=== PATIENT | male | born 1945 | race Caucasian/White ===

== ENCOUNTER 2020-09-09 12:33 | Outpatient (REF) | payer MEDICARE, OTHER, SELFPAY ==
[2020-09-09 13:06] LABS: MANUAL DIFF FLAG NO
[2020-09-09 13:10] LABS: Basophils Percent Auto 0.8 % (0-2); Eosinophils Absolute Auto 0.1 X10*3/uL (0.0-0.4); Eosinophils Percent Auto 2.3 % (0-4); Hematocrit 42.4 % (42-52); Hemoglobin 13.5 g/dl (14.0-18.0); Imm Gran Abs Auto 0.01 X10*3/uL (0.00-0.03); Imm Gran Pct Auto 0.2 % (0.0-0.4); Lymphocytes Absolute Auto 2.2 X10*3/uL (1.2-4.9); Lymphocytes Percent Auto 41.6 % (20-40); Mean Corpuscular HGB Conc 31.8 g/dl (31.0-36.0); Mean Corpuscular Hemoglobin 30.2 pg (27.0-33.0); Mean Corpuscular Volume 94.9 fL (80-98); Monocytes Absolute Auto 0.5 X10*3/uL (0.1-1.2); Monocytes Percent Auto 10.1 % (2-11); Neutrophils Absolute Auto 2.4 X10*3/uL (2.0-8.3); Platelet Count 261 X10*3/uL (160-400); Red Blood Count 4.47 X10*6/uL (4.60-5.80); Red Cell Distribution Width 14.2 % (11.0-16.0); White Blood Count 5.2 X10*3/uL (4.8-10.8)
[2020-09-09 13:14] LABS: Glucose Urine UA NEG (NEG); Leukocyte Esterase Urine NEG (NEG); Nitrite Urine NEG (NEG); PH 5.5 (5.0-8.0); Specific Gravity - Urine >= 1.030 (1.005-1.025); Urine Blood NEG (NEG); Urine Ketones NEG (NEG); Urine Protein NEG (NEG-TRACE)
[2020-09-09 13:15] LABS: Appearance Urine CLEAR; Color Urine YELLOW
[2020-09-09 13:42] LABS: Alanine Aminotransferase 34 U/L (0-40); Albumin Level 3.9 g/dL (3.5-5.0); Alkaline Phosphatase 55 U/L (39-117); Anion Gap 11 (12-20); Aspartate Amino Transferase 33 U/L (5-37); Bilirubin Total 0.7 mg/dL (0.0-1.0); Blood Urea Nitrogen 16 mg/dL (9-16); Calcium 8.9 mg/dL (8.4-10.2); Carbon Dioxide 28 mmol/L (22-29); Chloride 102 mmol/L (96-108); Cholesterol 146 mg/dL; Estimated Glomerular Filt Rate > 60; Glucose Fasting 87 mg/dL (60-99); HDL Cholesterol 37 mg/dL; LDL Cholesterol Calculated 102 mg/dl; Potassium 4.1 mmol/l (3.3-5.1); Sodium 137 mmol/L (135-145); Triglycerides 39 mg/dL
[2020-09-09 13:54] LABS: Prostate Specific Antigen 3.77 ng/mL (<0.05-4.0)
== END 2020-09-09 12:34 | disposition home or self-care (01) ==
LOC: HO.LAB 12:33
PROVIDERS: PCP Internal Medicine; Visit Provider Internal Medicine
DX: D72.820 Lymphocytosis (symptomatic) (principal); R73.9 Hyperglycemia, unspecified; R94.5 Abnormal results of liver function studies; R97.20 Elevated prostate specific antigen [PSA]; E78.6 Lipoprotein deficiency
CPT/HCPCS: 36415; 80053; 80061; 81003; 84153; 85025

== ENCOUNTER 2021-01-10 21:48 | Emergency (ER) | payer MEDICARE, OTHER, SELFPAY ==
[2021-01-10 21:51] VITALS: BP 166/81; PULSE 64; RESP 18; TEMP 36.8; O2SAT 96; BMI 21.9
--- NOTE | 2021-01-10 22:42 | ED.ANIMALBIT ---
HPI - Animal Bite General Chief Complaint: Animal Bite Stated Complaint: Tick bite Time Seen by Provider: 01/10/21 22:38 Source: patient Mode of arrival: ambulatory History of Present Illness HPI narrative: 75-year-old male who was working out in the [employer] presents with retained tick parts in the right back area after he found a tick and his attempted to remove it. He is unclear whether or not the tick was engorged and does not know how long the tick had been there. Related Data Allergies Allergy/AdvReac Type Severity Reaction Status Date / Time No Known Allergies Allergy Verified 01/10/21 21:51 Review of Systems Review of Systems: Pertinent positives and negatives as stated in HPI 10 point review of systems is otherwise negative. PMFSH Past Medical History Source: nursing notes reviewed Medical History Patient denies medical problems Social History Social History Alcohol intake: never Smoked in Last 30 Days: No Use of substances other than those prescribed or required for medical reasons: No Any prior treatment program specific to substance use: No Advance Directives: No Advance Directives Information Provided: Yes Physical Exam Vital Signs: Vital Signs: Last Vital Signs Temp 98.3 F 01/10/21 21:51 Pulse 64 01/10/21 21:51 Resp 18 01/10/21 21:51 BP 166/81 H 01/10/21 21:51 Pulse Ox 96 01/10/21 21:51 Body Mass Index 21.9 VITAL SIGNS: Reviewed. GENERAL: Well developed, well nourished, in no acute distress. HEAD: Normocephalic/atraumatic, EYES: PERRLA, EOMI intact without pain, no nystagmus/pallor/icterus noted EARS: Ext canals without abnormality, TMs non-bulging and non-erythematous NOSE: Nares patent bilateral OROPHARYNX: no oral lesions noted, posterior pharynx clear and non-erythematous without noted tonsillar enlargement/erythema/exudates NECK: Supple, no adenopathy LUNGS: Normal breath sounds. No adventitious sounds or accessory muscle use. SpO2<> CARDIOVASCULAR: Regular rate and rhythm without noted murmurs, no JVD or lower extremity edema. ABDOMEN: Soft, non-tender, non-distended with bowel sounds. No rigidity. No guarding. No palpable masses or hernias noted BACK NEUROLOGIC: Alert and oriented x 4. Course Course Course Narrative: 75-year-old male with history and clinical presentation consistent with tick bite, 200 mg of doxycycline was provided for prevention and removed remaining tick parts successfully by direct visualization. Patient was otherwise discharged to home in stable condition. Procedures Foreign Body Removal Time Out Performed: no Site: right and other (Back) Description of foreign body: insect (Tick parts) Sedation/Analgesia: none and other (Lidocaine 2%, 1 male, subcutaneous) Technique: manual removal and removal with forceps Confirmed by:: direct visualization Complications: none Post-procedure exam: awake, alert Discharge Plan Discharge Clinical Impression: Retained tick parts of upper back excluding scapular region Tick bite Qualifiers: Encounter type: initial encounter Qualified Code(s): W57.XXXA - Bitten or stung by nonvenomous insect and other nonvenomous arthropods, initial encounter Patient Disposition: Home, Self-Care Instructions: Tick Bite (ED) Additional Instructions: Follow-up with your primary care provider in the next 2-3 days for re-evaluation. Do not hesitate to return to the emergency department for any acute worsening of symptoms. Referrals: Fahad Garner MD [Primary Care Provider] - 2 days (Re-evaluation after tick bite. 200 mg of doxycycline administered for prevention and had to remove tick parts without complication.)
[2021-01-10] MEDS: Lidocaine HCl 2 % MPF 5 ML VIAL INFILTRATI (23:01)
== END 2021-01-10 23:49 | disposition home or self-care (01) ==
PROVIDERS: Emergency Provider Student in an Organized Health Care Education/Training Program; PCP Internal Medicine
DX: S20.461A Insect bite (nonvenomous) of right back wall of thorax, initial encounter (principal); W57.XXXA Bitten or stung by nonvenomous insect and other nonvenomous arthropods, initial encounter; Y93.9 Activity, unspecified; Y92.017 Garden or yard in single-family (private) house as the place of occurrence of the external cause; Y99.9 Unspecified external cause status; Y93.89 Activity, other specified
CPT/HCPCS: 99283; 99284

== ENCOUNTER 2021-09-14 10:24 | Day surgery (SDC) | payer MEDICARE, OTHER, SELFPAY ==
[2021-09-14 11:07] VITALS: BP 153/81; PULSE 58; RESP 16; TEMP 36.3; O2SAT 99; BMI 21.9
--- NOTE | 2021-09-14 11:13 | HO.ANESPROP2 ---
HPI - Anesthesia Eval Consult details Narrative: 76yo male patient for colonoscopy PMFSH Active Problems Active Problems: No medical problems. Only takes vitamins Past Medical History Medical History Patient denies medical problems Family History Family history of problems with anesthesia: No Surgical History Surgical History Hx of appendectomy Hx of bilateral cataract extraction Hx of colonoscopy Hx of inguinal hernia repair Hx of prostate biopsy History of Problems with Anesthesia: No Social History Social History Alcohol intake: never Patient Tobacco Use Status: Never used Tobacco Use of substances other than those prescribed or required for medical reasons: No Are you DNR?: No Advance Directives: No Advance Directives Information Provided: No Meds Allergies Allergy/AdvReac Type Severity Reaction Status Date / Time No Known Allergies Allergy Verified 01/10/21 21:51 Active Medications: Current Medications Sodium Biphosphate/Sodium Phosphate (Sodium Phosphate,[place]-Dibasic 133 Ml Enema) 133 ml NE ONCE PRN PRN Reason: Poor Colonoscopy Prep Results Home Medications Medication Instructions Recorded Confirmed Last Taken Type Co Q-10 09/08/21 09/08/21 Unknown History multivitamin 1 tab PO DAILY 09/08/21 09/08/21 Unknown History Exam Exam Date and Time: September 14, 2021 1113 Height,Weight and Vital Signs: Height 6 ft 5 in Weight 83.915 kg Vital Signs Temp Pulse Resp BP Pulse Ox 09/14/21 11:07 97.4 F 58 16 153/81 H 99 Airway Mallampati Class: I TM Dist: >3cm Neck ROM: Full Loose/Missing/Broken Teeth: No Heart: RRR Lungs: CTAB Assessment and Plan Assessment Anesthesia Assessment: Anesthesia Plan Discussed and Chart Reviewed Final Anesthetic Review Family History of Problems with Anesthesia: No History of Problems with Anesthesia: No NPO: Yes ASA Class: I Final Preanesthetic Review: No Changes in Pt Med Stat, Meds/Allgs Chart Reviewed, Consent Obtained/Reviewed and Anes Risks/Benef Reviewed Patient Risk: Low Procedure Risk: Low Assessment/Block/Sedation in SS: Assess/Block/Sedation-SS Anesthetic Plan Anesthetic Plan: MAC: Disposition: Standard PACU
[2021-09-14] MEDS: Lactated Ringers 1,000 ML 100 ML IVCONT (11:32)
--- NOTE | 2021-09-14 12:59 | PM.OP ---
Brief Operative Note Date of Service: 09/14/21 Pre-op diagnosis: Screening, Abnormal MRI of rectum Post-op diagnosis: other (Colon polyps) Procedure: Colonoscopy to the cecum and TI with bx/removal of polyps Surgeon: Buck Chavarria Anesthesia: MAC Was an [employer] used for this Procedure?: No Estimated blood loss (mL): 2.0 Pathology: other (A. Cecal polyp B. Polyp at 60cm) Condition: stable Disposition: PACU
[2021-09-14 13:00] VITALS: BP 123/69; PULSE 57; RESP 16; TEMP 37.2; O2SAT 100
[2021-09-14 13:20] VITALS: BP 130/75; PULSE 53; RESP 16; TEMP 37.2; O2SAT 98
--- NOTE | 2021-09-14 14:54 | OP_ITS ---
SURGEON: Buck Chavarria MD INDICATIONS: The patient presents for evaluation of colorectal cancer screening, personal history of tubular adenoma of the colon, and abnormal MRI of rectum. Full consent has been obtained from him for this, including risks of bleeding and perforation. PREOPERATIVE DIAGNOSIS: POSTOPERATIVE DIAGNOSIS: PROCEDURE PERFORMED: Colonoscopy to cecum and terminal ileum with biopsy and removal of polyps. ESTIMATED BLOOD LOSS: COMPLICATIONS: ANESTHESIA: Monitored anesthesia care. ASSISTANTS: SPECIMENS: PREOPERATIVE DIAGNOSES: Colorectal cancer screening, personal history of tubular adenoma of the colon, and abnormal MRI of rectum. POSTOPERATIVE DIAGNOSES: Colorectal cancer screening, personal history of tubular adenoma of the colon, and abnormal MRI of rectum, small colon polyps, diverticulosis and internal hemorrhoids. DESCRIPTION OF PROCEDURE: The patient was placed in the left lateral decubitus position. The digital rectal exam revealed no abnormalities. The Olympus video pediatric colonoscope was entered into the rectum and advanced easily to the cecum. The entire cecum was well visualized and appeared normal other than an approximately 4 mm polyp, which was biopsied and completely removed with cold biopsy forceps. The appendiceal orifice and ileocecal valve appeared normal. The terminal ileum was cannulated and appeared normal. Scope was withdrawn back in the colon. The entire cecum otherwise appeared normal. The scope was slowly withdrawn assessing all mucosal surfaces carefully. Preparation was excellent. At 50 cm, was a flat approximately 3 or 4 mm polyp, which was biopsied and completely removed with cold biopsy forceps. I did not visualize any other polyps, colitis, nor angiodysplasia. There was a mild amount of sigmoid diverticulosis. In the rectum, the scope was retroflexed visualizing the distal rectum carefully, which appeared normal, other than internal hemorrhoids. The rectum was inspected carefully both the forward viewing and retroflexed positions and no abnormality was seen, as had been suggested on the MRI. The scope was withdrawn from the patient. He tolerated the procedure well and was returned to the recovery area in stable condition. IMPRESSION: 1. Small colon polyps, status post biopsy and removal. 2. Diverticulosis. 3. Internal hemorrhoids. 4. No rectal abnormalities as had been suggested on the MRI. PLAN: The results of the biopsies will be checked. At this point given his relatively minimal findings and his age, I do not think he will need any further screening colonoscopies. He will see me on a p.r.n. basis. This has been discussed with his . MD TRAVIS Amaro/YARY / [id number]
== END 2021-09-14 14:15 | disposition home or self-care (01) ==
PROVIDERS: PCP Internal Medicine; Visit Provider Internal Medicine
PROC: 0DJD8ZZ Inspection of Lower Intestinal Tract, Via Natural or Artificial Opening Endoscopic (ICD-10-PCS; CPT 45378; principal; 2021-09-14 11:30)
DX: Z12.11 Encounter for screening for malignant neoplasm of colon (principal); Z86.010 Personal history of colon polyps; R93.5 Abnormal findings on diagnostic imaging of other abdominal regions, including retroperitoneum; D12.0 Benign neoplasm of cecum; K63.5 Polyp of colon; K57.30 Diverticulosis of large intestine without perforation or abscess without bleeding; K64.8 Other hemorrhoids; E73.9 Lactose intolerance, unspecified
CPT/HCPCS: 45380; 88305

== ENCOUNTER 2021-09-29 10:07 | Outpatient (REF) | payer MEDICARE, OTHER, SELFPAY ==
[2021-09-29 10:10] LABS: MANUAL DIFF FLAG NO
[2021-09-29 10:27] LABS: Appearance Urine CLEAR; Color Urine YELLOW; Glucose Urine UA NEG (NEG); Leukocyte Esterase Urine NEG (NEG); Nitrite Urine NEG (NEG); Urine Blood NEG (NEG); Urine Ketones NEG (NEG); Urine Protein NEG (NEG-TRACE)
[2021-09-29 10:40] LABS: Basophils Percent Auto 0.3 % (0-2); Eosinophils Absolute Auto 0.2 X10*3/uL (0.0-0.4); Eosinophils Percent Auto 2.5 % (0-4); Hematocrit 42.1 % (42.0-52.0); Hemoglobin 13.3 g/dl (14.0-18.0); Imm Gran Abs Auto 0.02 X10*3/uL (0.00-0.03); Imm Gran Pct Auto 0.3 % (0.0-0.4); Lymphocytes Absolute Auto 3.4 X10*3/uL (1.2-4.9); Lymphocytes Percent Auto 46.4 % (20-40); Mean Corpuscular HGB Conc 31.6 g/dl (31.0-36.0); Mean Corpuscular Hemoglobin 29.8 pg (27.0-33.0); Mean Corpuscular Volume 94.2 fL (80.0-98.0); Mean Platelet Volume 10.5 fL (9.4-12.4); Monocytes Absolute Auto 0.6 X10*3/uL (0.1-1.2); Monocytes Percent Auto 8.3 % (2-11); Neutrophils Absolute Auto 3.1 x10*3/uL (2.0-8.3); Neutrophils Percent Auto 42.2 % (45-73); Platelet Count 284 X10*3/uL (160-400); Red Blood Count 4.47 X10*6/uL (4.60-5.80); Red Cell Distribution Width 14.2 % (11.0-16.0); White Blood Count 7.3 X10*3/uL (4.8-10.8)
[2021-09-29 12:20] LABS: Alanine Aminotransferase 31 U/L (0-40); Albumin Level 3.8 g/dL (3.5-5.0); Alkaline Phosphatase 57 U/L (39-117); Anion Gap 9 (12-20); Aspartate Amino Transferase 29 U/L (5-37); Bilirubin Total 0.4 mg/dL (0.0-1.0); Blood Urea Nitrogen 16 mg/dL (9-16); Calcium 9.2 mg/dL (8.4-10.2); Carbon Dioxide 31 mmol/L (22-29); Chloride 104 mmol/L (96-108); Cholesterol 151 mg/dL; Estimated Glomerular Filt Rate > 60; Glucose Fasting 91 mg/dL (60-99); HDL Cholesterol 30 mg/dL; LDL Cholesterol Calculated 108 mg/dl; PSA,Total (Free>4and<10) 5.19 ng/mL (0.00-4.00); Potassium 3.9 mmol/L (3.3-5.1); Sodium 140 mmol/L (135-145); Total Protein 6.8 g/dL (6.5-8.0); Triglycerides 66 mg/dL
[2021-09-29 12:46] LABS: Reflex LDLD? No
[2021-09-30 12:16] LABS: Free Prostate Spec Ag 0.9 ng/mL; Percent Free Prostate Spec Ag 15 % (calc) (>25)
== END 2021-09-29 10:08 | disposition home or self-care (01) ==
LOC: HO.LNP 10:07
PROVIDERS: Visit Provider Internal Medicine
DX: R73.9 Hyperglycemia, unspecified (principal); E78.6 Lipoprotein deficiency; D72.820 Lymphocytosis (symptomatic); R94.5 Abnormal results of liver function studies; R97.20 Elevated prostate specific antigen [PSA]; Z12.5 Encounter for screening for malignant neoplasm of prostate
CPT/HCPCS: 80053; 80061; 81003; 84153; 84154; 85025

== ENCOUNTER 2022-10-07 10:56 | Outpatient (REF) | payer MEDICARE, OTHER, SELFPAY ==
[2022-10-07 11:00] LABS: MANUAL DIFF FLAG NO
[2022-10-07 11:16] LABS: Basophils Absolute Auto 0.1 X10*3/uL (0.0-0.2); Basophils Percent Auto 0.8 % (0-2); Eosinophils Absolute Auto 0.3 X10*3/uL (0.0-0.4); Eosinophils Percent Auto 3.7 % (0-4); Hematocrit 41.1 % (42.0-52.0); Hemoglobin 13.1 g/dl (14.0-18.0); Imm Gran Abs Auto 0.02 X10*3/uL (0.00-0.03); Imm Gran Pct Auto 0.3 % (0.0-0.4); Lymphocytes Absolute Auto 3.2 X10*3/uL (1.2-4.9); Lymphocytes Percent Auto 43.6 % (20-40); Mean Corpuscular HGB Conc 31.9 g/dl (31.0-36.0); Mean Corpuscular Hemoglobin 30.2 pg (27.0-33.0); Mean Corpuscular Volume 94.7 fL (80.0-98.0); Mean Platelet Volume 10.2 fL (9.4-12.4); Monocytes Absolute Auto 0.7 X10*3/uL (0.1-1.2); Monocytes Percent Auto 9.6 % (2-11); Neutrophils Absolute Auto 3.1 x10*3/uL (2.0-8.3); Platelet Count 287 X10*3/uL (160-400); Red Blood Count 4.34 X10*6/uL (4.60-5.80); Red Cell Distribution Width 14.3 % (11.0-16.0); White Blood Count 7.3 X10*3/uL (4.8-10.8)
[2022-10-07 11:20] LABS: Appearance Urine Turbid; Color Urine Yellow; Glucose Urine UA Negative (Negative); Leukocyte Esterase Urine Negative (Negative); Nitrite Urine Negative (Negative); Specific Gravity - Urine >= 1.030 (1.005-1.025); Urine Blood Negative (Negative); Urine Ketones Negative (Negative); Urine Protein Trace mg/dL (Neg-Trace)
[2022-10-07 11:30] LABS: Bacteria Urine None Seen (None Seen); RBC Urine 0-2 /HPF (0-2); Squamous Epithelial Cell Urine 0-2 /HPF (0-2); WBC Urine 0-5 /HPF (0-5)
[2022-10-07 11:42] LABS: Alanine Aminotransferase 28 U/L (0-40); Albumin Level 3.7 g/dL (3.5-5.0); Alkaline Phosphatase 57 U/L (39-117); Anion Gap 11 (12-20); Aspartate Amino Transferase 28 U/L (5-37); Bilirubin Total 0.4 mg/dL (0.0-1.0); Blood Urea Nitrogen 18 mg/dL (9-16); Calcium 8.7 mg/dL (8.4-10.2); Carbon Dioxide 27 mmol/L (22-29); Chloride 107 mmol/L (96-108); Cholesterol 155 mg/dL; Estimated Glomerular Filt Rate > 60; Glucose Fasting 93 mg/dL (60-99); HDL Cholesterol 39 mg/dL; LDL Cholesterol Calculated 106 mg/dl; Sodium 141 mmol/L (135-145); Total Protein 6.4 g/dL (6.5-8.0); Triglycerides 54 mg/dL
[2022-10-08 11:24] LABS: Free Prostate Spec Ag 1.1 ng/mL; Percent Free Prostate Spec Ag 16 % (calc) (>25); Prostate Specific Ag Total 6.8 ng/mL (< OR = 4.0)
== END 2022-10-07 10:57 | disposition home or self-care (01) ==
LOC: HO.LNP 10:56
PROVIDERS: Visit Provider Internal Medicine
DX: E78.6 Lipoprotein deficiency (principal); D72.820 Lymphocytosis (symptomatic); R97.20 Elevated prostate specific antigen [PSA]; Z12.5 Encounter for screening for malignant neoplasm of prostate
CPT/HCPCS: 80053; 80061; 81001; 84153; 84154; 85025

== ENCOUNTER 2023-05-24 12:01 | Outpatient (REF) | payer MEDICARE, OTHER, SELFPAY ==
--- NOTE | ~2023-05-24 | US_ITS ---
EXAMINATION: US VENOUS ULTRASOUND WITH DOPPLER LOWER EXTREMITY, LEFT CLINICAL INFORMATION: Superficial phlebitis. COMPARISON: None available. TECHNIQUE: Ultrasound of the deep veins is performed from the hip to the calf with compression sonography and color and pulse Doppler assessment. Spectral analysis with color-flow imaging is performed. FINDINGS: There is normal venous compression and respiratory variation and augmented flow. The visualized common femoral vein, superficial femoral vein, profunda femoral vein, popliteal vein, and the trifurcation region shows no evidence of deep venous thrombosis. The right common femoral vein is patent. No left popliteal cyst. The subcutaneous soft tissues are unremarkable. US/US venous duplex LE LT IMPRESSION: No evidence for deep venous thrombosis in the visualized veins of the left lower extremity.
== END 2023-05-24 12:02 | disposition home or self-care (01) ==
LOC: HO.US 12:01
PROVIDERS: PCP Internal Medicine; Visit Provider Internal Medicine
DX: I80.02 Phlebitis and thrombophlebitis of superficial vessels of left lower extremity (principal)
CPT/HCPCS: 93971

== ENCOUNTER 2023-10-07 10:23 | Outpatient (REF) | payer MEDICARE, OTHER, SELFPAY ==
[2023-10-07 11:32] LABS: Alanine Aminotransferase 31 U/L (0-40); Albumin Level 3.8 g/dL (3.5-5.0); Alkaline Phosphatase 51 U/L (39-117); Anion Gap 10 (12-20); Aspartate Amino Transferase 31 U/L (5-37); Bilirubin Total 0.5 mg/dL (0.0-1.0); Blood Urea Nitrogen 17 mg/dL (9-16); Calcium 9.2 mg/dL (8.4-10.2); Carbon Dioxide 29 mmol/L (22-29); Chloride 105 mmol/L (96-108); Cholesterol 152 mg/dL (<200); Estimated Glomerular Filt Rate > 60; Glucose Fasting 89 mg/dL (60-99); HDL Cholesterol 41 mg/dL (>40); LDL Cholesterol Calculated 101 mg/dL (<100); Potassium 4.2 mmol/L (3.3-5.1); Sodium 140 mmol/L (135-145); Total Protein 7.1 g/dL (6.5-8.0); Triglycerides 52 mg/dL (<150)
== END 2023-10-07 10:24 | disposition home or self-care (01) ==
LOC: HO.LNP 10:23
PROVIDERS: Visit Provider Internal Medicine
DX: E78.6 Lipoprotein deficiency (principal); D72.820 Lymphocytosis (symptomatic); R97.20 Elevated prostate specific antigen [PSA]; Z12.5 Encounter for screening for malignant neoplasm of prostate
CPT/HCPCS: 80053; 80061; 81001; 84153; 84154; 85025

== ENCOUNTER 2024-04-30 13:02 | Outpatient (REF) | payer MEDICARE, OTHER, SELFPAY ==
[2024-04-30 13:39] VITALS: BP 167/79; PULSE 60; RESP 16; TEMP 36.2; O2SAT 97; BMI 21.9
== END 2024-04-30 13:03 | disposition home or self-care (01) ==
LOC: HO.MS 13:02
PROVIDERS: PCP Internal Medicine; Visit Provider Ophthalmology
PROC: (CPT 66821; principal; 2024-04-30 15:10)
DX: H26.492 Other secondary cataract, left eye (principal)
CPT/HCPCS: 66821

== ENCOUNTER 2024-10-11 11:09 | Outpatient (REF) | payer MEDICARE, OTHER, SELFPAY ==
[2024-10-11 11:16] LABS: MANUAL DIFF FLAG NO
[2024-10-11 11:38] LABS: Basophils Absolute Auto 0.1 X10*3/uL (0.0-0.2); Basophils Percent Auto 0.7 % (0-2); Eosinophils Absolute Auto 0.2 X10*3/uL (0.0-0.4); Hematocrit 41.3 % (42.0-52.0); Hemoglobin 13.3 g/dl (14.0-18.0); Imm Gran Abs Auto 0.01 X10*3/uL (0.00-0.03); Imm Gran Pct Auto 0.1 % (0.0-0.4); Lymphocytes Absolute Auto 3.1 X10*3/uL (1.2-4.9); Lymphocytes Percent Auto 43.6 % (20-40); Mean Corpuscular HGB Conc 32.2 g/dl (31.0-36.0); Mean Corpuscular Hemoglobin 30.2 pg (27.0-33.0); Mean Corpuscular Volume 93.7 fL (80.0-98.0); Mean Platelet Volume 10.3 fL (9.4-12.4); Monocytes Absolute Auto 0.6 X10*3/uL (0.1-1.2); Monocytes Percent Auto 8.6 % (2-11); Neutrophils Absolute Auto 3.1 x10*3/uL (2.0-8.3); Platelet Count 288 X10*3/uL (160-400); Red Blood Count 4.41 X10*6/uL (4.60-5.80); Red Cell Distribution Width 14.6 % (11.0-16.0)
[2024-10-11 11:40] LABS: Appearance Urine Clear; Color Urine Yellow; Glucose Urine UA Negative (Negative); Leukocyte Esterase Urine Negative (Negative); Nitrite Urine Negative (Negative); Urine Blood Negative (Negative); Urine Ketones Negative (Negative); Urine Protein Negative (Neg-Trace)
[2024-10-11 11:58] LABS: RBC Urine 0-2 /HPF (0-2); Squamous Epithelial Cell Urine 0-2 /HPF (0-2); WBC Urine 0-5 /HPF (0-5)
[2024-10-11 11:59] LABS: Bacteria Urine Trace (None Seen)
[2024-10-11 12:14] LABS: PSA,Total (Free>4and<10) 9.16 ng/mL (0.00-4.00)
[2024-10-11 12:56] LABS: Alanine Aminotransferase 32 U/L (0-40); Albumin Level 3.8 g/dL (3.5-5.0); Alkaline Phosphatase 56 U/L (39-117); Anion Gap 12 (12-20); Aspartate Amino Transferase 37 U/L (5-37); Bilirubin Total 0.5 mg/dL (0.0-1.0); Blood Urea Nitrogen 18 mg/dL (9-16); Calcium 8.9 mg/dL (8.4-10.2); Carbon Dioxide 29 mmol/L (22-29); Chloride 105 mmol/L (96-108); Cholesterol 159 mg/dL (<200); Estimated Glomerular Filt Rate > 60; Glucose Fasting 91 mg/dL (60-99); HDL Cholesterol 41 mg/dL (>40); LDL Cholesterol Calculated 106 mg/dL (<100); Potassium 3.9 mmol/L (3.3-5.1); Sodium 142 mmol/L (135-145); Triglycerides 60 mg/dL (<150)
[2024-10-16 14:17] LABS: Free Prostate Spec Ag 1.4 ng/mL; Percent Free Prostate Spec Ag NOT CALCULATED % (calc) (>25); Prostate Specific Ag Total 10.3 ng/mL (< OR = 4.0)
== END 2024-10-11 11:10 | disposition home or self-care (01) ==
LOC: HO.LNP 11:09
PROVIDERS: Visit Provider Internal Medicine
DX: E87.6 Hypokalemia (principal); D72.820 Lymphocytosis (symptomatic); R97.20 Elevated prostate specific antigen [PSA]; Z12.5 Encounter for screening for malignant neoplasm of prostate
CPT/HCPCS: 80053; 80061; 81001; 84153; 84154; 85025

== ENCOUNTER 2025-02-04 15:01 | Outpatient (REF) | payer MEDICARE, OTHER, SELFPAY ==
[2025-02-04 15:06] LABS: MANUAL DIFF FLAG NO
[2025-02-04 15:22] LABS: Basophils Absolute Auto 0.1 X10*3/uL (0.0-0.2); Basophils Percent Auto 0.6 % (0-2); Eosinophils Absolute Auto 0.1 X10*3/uL (0.0-0.4); Eosinophils Percent Auto 1.8 % (0-4); Hematocrit 34.2 % (42.0-52.0); Hemoglobin 11.3 g/dl (14.0-18.0); Imm Gran Abs Auto 0.02 X10*3/uL (0.00-0.03); Imm Gran Pct Auto 0.3 % (0.0-0.4); Lymphocytes Absolute Auto 2.5 X10*3/uL (1.2-4.9); Lymphocytes Percent Auto 31.4 % (20-40); Mean Corpuscular Hemoglobin 28.3 pg (27.0-33.0); Mean Corpuscular Volume 85.5 fL (80.0-98.0); Mean Platelet Volume 8.9 fL (9.4-12.4); Monocytes Percent Auto 12.1 % (2-11); Neutrophils Absolute Auto 4.3 x10*3/uL (2.0-8.3); Neutrophils Percent Auto 53.8 % (45-73); Platelet Count 464 X10*3/uL (160-400); Red Cell Distribution Width 14.5 % (11.0-16.0)
[2025-02-04 15:23] LABS: Appearance Urine Clear; Color Urine Yellow; Glucose Urine UA Negative (Negative); Leukocyte Esterase Urine Negative (Negative); Nitrite Urine Negative (Negative); PH 5.5 (5.0-9.0); Urine Blood Negative (Negative); Urine Ketones Negative (Negative); Urine Protein Negative (Neg-Trace)
[2025-02-04 15:25] LABS: Bacteria Urine None Seen (None Seen); Hyaline Casts Urine 0-2 /LPF (0-2); RBC Urine 0-2 /HPF (0-2); Squamous Epithelial Cell Urine 0-2 /HPF (0-2); WBC Urine 0-5 /HPF (0-5)
[2025-02-04 15:41] LABS: Alanine Aminotransferase 42 U/L (0-40); Albumin Level 3.5 g/dL (3.5-5.0); Anion Gap 12 (12-20); Aspartate Amino Transferase 31 U/L (5-37); Bilirubin Total 0.3 mg/dL (0.0-1.0); Blood Urea Nitrogen 18 mg/dL (9-16); Calcium 8.9 mg/dL (8.4-10.2); Carbon Dioxide 28 mmol/L (22-29); Chloride 100 mmol/L (96-108); Estimated Glomerular Filt Rate > 60; Glucose Fasting 94 mg/dL (60-99); Potassium 4.4 mmol/L (3.3-5.1); Sodium 136 mmol/L (135-145); Total Protein 7.2 g/dL (6.5-8.0)
[2025-02-04 15:55] LABS: TSH reflex Free T4 2.01 uIU/mL (0.32-4.0)
[2025-02-04 16:15] LABS: Alkaline Phosphatase 64 U/L (39-117)
--- OUTSIDE RECORDS SUMMARY | 2025-02-04 16:39 | XMS_ITS | Patient Health Record ---
Author Organization Fahad Garner MD Address [address] [place] [phone] Care Team Providers Care Holder Pile Driving Name Role Phone Fahad Garner Primary Care Provider [phone] Allergies No Known Allergies Results Component Value Reference Range Notes Complete Blood Count Auto Di ff Reviewed date:10/11/2024 06:09:17 PM Interpretation: Performing Lab:[facility], [address] [place] [phone] Notes/Report: White Blood Count 7.0 4.8-10.8 X10*3/uL Red Blood Count 4.41 4.60-5.80 X10*6/uL Hemoglobin 13.3 14.0-18.0 g/dl Hematocrit 41.3 42.0-52.0 % Mean Corpuscular Volume 93.7 80.0-98.0 fL Mean Corpuscular Hemoglobin 30.2 27.0-33.0 pg Mean Corpuscular HGB Conc 32.2 31.0-36.0 g/dl Red Cell Distribution Width 14.6 11.0-16.0 % Platelet Count 288 160-400 X10*3/uL Mean Platelet Volume 10.3 9.4-12.4 fL Neutrophils Percent Auto 44.0 45-73 % Imm Gran Pct Auto 0.1 0.0-0.4 % Lymphocytes Percent Auto 43.6 20-40 % Monocytes Percent Auto 8.6 2-11 % Eosinophils Percent Auto 3.0 0-4 % Basophils Percent Auto 0.7 0-2 % NRBC Pct Auto 0.0 0.0-0.2 /100WBC Neutrophils Absolute Auto 3.1 2.0-8.3 x10*3/u L Imm Gran Abs Auto 0.01 0.00-0.03 X10*3/uL Lymphocytes Absolute Auto 3.1 1.2-4.9 X10*3/u L Monocytes Absolute Auto 0.6 0.1-1.2 X10*3/uL Eosinophils Absolute Auto 0.2 0.0-0.4 X10*3/u L Basophils Absolute Auto 0.1 0.0-0.2 X10*3/uL NRBC Abs Auto 0.000 0.0-0.012 X10*3/uL Comprehensive [place]. Panel Fa st Reviewed date:10/11/2024 06:03:52 PM Interpretation: Performing Lab:[facility], [address] [place] [phone] Notes/Report: Sodium 142 135-145 mmol/L Potassium 3.9 3.3-5.1 mmol/L Chloride 105 96-108 mmol/L Carbon Dioxide 29 22-29 mmol/L Anion Gap 12 12-20 Blood Urea Nitrogen 18 9-16 mg/dL Creatinine 0.75 0.5-1.4 mg/dL Estimated Glomerular Filt Rate > 60 Chronic Kidney Disease: Estimated GFR < 60 mL/min/1.73m2 Severe Kidney Disease: Estimated GFR < 15 mL/min/1.73m2 Glucose Fasting 91 60-99 mg/dL Calcium 8.9 8.4-10.2 mg/dL Bilirubin Total 0.5 0.0-1.0 mg/dL Aspartate Amino Transferase 37 5-37 U/L Alanine Aminotransferase 32 0-40 U/L Total Protein 7.0 6.5-8.0 g/dL Albumin Level 3.8 3.5-5.0 g/dL Alkaline Phosphatase 56 39-117 U/L Lipid Panel Reviewed date:10/11/2024 06:06:52 PM Interpretation: Performing Lab:[facility], [address] [place] [phone] Notes/Report: Triglycerides 60 <150 mg/dL Desirable Triglyceride: less than 150 mg/dL Borderline High Triglyceride 150-199 mg/dL High Triglyceride: 200-499 mg/dL Very High Triglyceride: greater than or equal to 5OO mg/dL Cholesterol 159 <200 mg/dL Desirable Cholesterol: less than 200 mg/dL Borderline High Cholesterol: 200-239 mg/dL High Cholesterol: greater than 239 mg/dL LDL Cholesterol Calculated 106 <100 mg/dL Desirable LDL: less than 100 mg/dL Near Optimal/Above Optimal LDL: 110-129 mg/dL Borderline High LDL: 130-159 mg/dL High LDL: 160-189 mg/dL Very High LDL: greater than or equal to 190 mg/dL HDL Cholesterol 41 >40 mg/dL Desirable HDL: greater than 40 mg/dL Note: This HDL assay may give artificially low results in patients with liver disease. PSA,Total (Free>4and<10) Reviewed date:10/18/2024 12:35:50 PM Interpretation:[place] 10/18/24 Performing Lab:[address] [phone] Notes/Report: PSA,Total (Free>4and<10) 9.16 0.00-4.00 ng/mL PSA methodology: Ortega Alinity i Chemiluminescent Microparticle Immunoassay (CMIA) UA ClnCatch+Micro w/rflx Cul t Reviewed date:10/11/2024 06:06:45 PM Interpretation: Performing Lab:[facility], [address] [place] [phone] Notes/Report: Urine, Clean Catch Color Urine Yellow Appearance Urine Clear PH 5.0 5.0-9.0 Glucose Urine UA Negative Negative mg/dL Urine Blood Negative Negative Specific [place] - Urine 1.020 1.005-1.025 Urine Protein Negative Neg-Trace mg/dL Urine Ketones Negative Negative mg/dL Nitrite Urine Negative Negative Leukocyte Esterase Urine Negative Negative RBC Urine 0-2 0-2 /HPF WBC Urine 0-5 0-5 /HPF Squamous Epithelial Cell Urine 0-2 0-2 /HPF Bacteria Urine Trace None Seen Hyaline Casts Urine 3-5 0-2 /LPF Complete Blood Count Auto Di ff (Not yet reviewed by provider) Interpretation: Performing Lab:[facility], [address] [place] [phone] Notes/Report: White Blood Count 8.0 4.8-10.8 X10*3/uL Red Blood Count 4.00 4.60-5.80 X10*6/uL Hemoglobin 11.3 14.0-18.0 g/dl Hematocrit 34.2 42.0-52.0 % Mean Corpuscular Volume 85.5 80.0-98.0 fL Mean Corpuscular Hemoglobin 28.3 27.0-33.0 pg Mean Corpuscular HGB Conc 33.0 31.0-36.0 g/dl Red Cell Distribution Width 14.5 11.0-16.0 % Platelet Count 464 160-400 X10*3/uL Mean Platelet Volume 8.9 9.4-12.4 fL Neutrophils Percent Auto 53.8 45-73 % Imm Gran Pct Auto 0.3 0.0-0.4 % Lymphocytes Percent Auto 31.4 20-40 % Monocytes Percent Auto 12.1 2-11 % Eosinophils Percent Auto 1.8 0-4 % Basophils Percent Auto 0.6 0-2 % NRBC Pct Auto 0.0 0.0-0.2 /100WBC Neutrophils Absolute Auto 4.3 2.0-8.3 x10*3/u L Imm Gran Abs Auto 0.02 0.00-0.03 X10*3/uL Lymphocytes Absolute Auto 2.5 1.2-4.9 X10*3/ uL Monocytes Absolute Auto 1.0 0.1-1.2 X10*3/uL Eosinophils Absolute Auto 0.1 0.0-0.4 X10*3/u L Basophils Absolute Auto 0.1 0.0-0.2 X10*3/uL NRBC Abs Auto 0.000 0.0-0.012 X10*3/uL Urinalysis and Microscopic Reviewed date:02/04/2025 04:10:40 PM Interpretation: Performing Lab:[facility], [address] [place] [phone] Notes/Report: Color Urine Yellow Appearance Urine Clear PH 5.5 5.0-9.0 Glucose Urine UA Negative Negative mg/dL Urine Blood Negative Negative Specific [place] - Urine 1.020 1.005-1.025 Urine Protein Negative Neg-Trace mg/dL Urine Ketones Negative Negative mg/dL Nitrite Urine Negative Negative Leukocyte Esterase Urine Negative Negative RBC Urine 0-2 0-2 /HPF WBC Urine 0-5 0-5 /HPF Squamous Epithelial Cell Urine 0-2 0-2 /HPF Bacteria Urine None Seen None Seen Hyaline Casts Urine 0-2 0-2 /LPF Comprehensive [place]. Panel Fa Reviewed date:02/04/2025 04:27:38 PM Interpretation: Performing Lab:[facility], [address] [place] [phone] Notes/Report: Sodium 136 135-145 mmol/L Potassium 4.4 3.3-5.1 mmol/L Chloride 100 96-108 mmol/L Carbon Dioxide 28 22-29 mmol/L Anion Gap 12 12-20 Blood Urea Nitrogen 18 9-16 mg/dL Creatinine 0.64 0.5-1.4 mg/dL Estimated Glomerular Filt Rate > 60 Chronic Kidney Disease: Estimated GFR < 60 mL/min/1.73m2 Severe Kidney Disease: Estimated GFR < 15 mL/min/1.73m2 Glucose Fasting 94 60-99 mg/dL Calcium 8.9 8.4-10.2 mg/dL Bilirubin Total 0.3 0.0-1.0 mg/dL Aspartate Amino Transferase 31 5-37 U/L Alanine Aminotransferase 42 0-40 U/L Total Protein 7.2 6.5-8.0 g/dL Albumin Level 3.5 3.5-5.0 g/dL Alkaline Phosphatase 64 39-117 U/L TSH reflex Free T4 Reviewed date:02/04/2025 04:27:20 PM Interpretation: Performing Lab:[facility], [address] [place] [phone] Notes/Report: TSH reflex Free T4 2.01 0.32-4.0 uIU/mL Occult Blood, Stool, Guaiac Reviewed date:10/18/2024 11:05:16 AM Interpretation:Negative Performing Lab: Notes/Report: Negative Occult Blood, Stool, Guaiac Neg PSA Free and Total Reviewed date:10/18/2024 12:35:30 PM Interpretation:[place]ACK 10/18/24 Performing Lab:[facility], [address] [place] [phone] Notes/Report: Prostate Specific Ag Total 10.3 < OR = 4.0 ng/ mL Percent Free Prostate Spec Ag NOT CALCULATED >25 % (calc) PSA(ng/mL) Free PSA(%) Estimated(x) Probability of Cancer(as%) 0-2.5 (*) Approx. 1 2.6-4.0(1) 0-27(2) 24(3) 4.1-10(4) 0-10 56 11-15 28 16-20 20 21-25 16 >or =26 8 >10(+) N/A >50 References:(1)Alvarez et al.:Urology 60: 469-474 (2001) (2)Alvarez et al.:J.Urol 168: 922-925 (2001) Free PSA(%) Sensitivity(%) Specificity(%) < or = 25 85 19 < or = 30 93 9 (3)Catalona et al.:BUD 277: 4116-7228 (1996) (4)Catalona et al.:BUD 279: 8225-4594 (1997) (x)These estimates vary with age, ethnicity, family history and JENNY results. (*)The diagnostic usefulness of % Free PSA has not been established in patients with total PSA below 2.6 ng/mL (+)In men with PSA above 10 ng/mL, prostate cancer risk is determined by total PSA alone. The Total PSA value from this assay system is standardized against the equimolar PSA standard. The test result will be approximately 20% higher when compared to the WHO-standardized Total PSA (Siemens assay). Comparison of serial PSA results should be interpreted with this fact in mind. PSA was performed using the Doyle [place] Immunoassay method. Values obtained from different assay methods cannot be used interchangeably. PSA levels, regardless of value, should not be interpreted as absolute evidence of the presence or absence of disease. THIS TEST WAS PERFORMED AT: [facility] [address] [place] [phone] PRAVEEN LAWSON MD Free Prostate Spec Ag 1.4 Hold Gold Reviewed date:02/04/2025 04:10:07 PM Interpretation: Performing Lab:[facility], [address] [place] [phone] Notes/Report: Kevin Gold See Note Specimen held untested for 24 hours; Call to request Chemistry testing. Reason For Referral Reason lumber disc disease Diagnosis 1 Lumbar disc disease (M51.9) Referral Organization Fahad Garner MD Referring Provider First Name Fahad Referring Provider Last Name Patsy Referring Provider Speciality Internal M edicine Referred Provider [facility] Referred Provider Specialty Physical Med icine General Notes Amy Rojas 03:04:51 PM EDT > info faxed Referral Priority Routine Referral Appointment Date 05/21/2024 Reason lumbar disc disease Diagnosis 1 Lumbar disc disease (M51.9) Referral Organization Fahad Garner MD Referring Provider First Name Fahad Referring Provider Last Name Patsy Referring Provider Speciality Internal M edicine Referred Provider Danny Hensley Referred Provider Specialty Neurological Surgery General Notes Amy Rojas 0 11/02/2024 01:21:59 PM > f [phone] Annette 11/02/2024 01:37:55 PM >info faxedBob Annette 11/05/2024 07:26:39 AM > info mailed to patient Referral Priority Routine Referral Appointment Date 12/06/2024 Medications Medication SIG (Take, Route, Fr equency, Duration) Notes Start Date End Date Status predniSONE 20 MG 1 tablet with food o r milk Orally Once a day for 10 days 02/04/2025 Ac tive Indomethacin 50 MG 1 capsule with food or milk Orally 3 timesn a day for 10 days 05/24/2023 Not-Taking Immunizations Vaccine Route Administration Date Status Comme nts Flu Vaccine IM Intramuscular 08/22/2012 Administered PPSV23 (Pnemovax) IM Intramuscular 08/22/2012 Administered Flu Vaccine IM Intramuscular 07/31/2013 Administered Flu Vaccine IM Intramuscular 08/06/2014 Administered PPSV23 (Pnemovax) IM Intramuscular 08/15/2014 Administered Fluarix Quadrivalent IM Intramuscular 07/31/2015 Administe red Fluarix Quadrivalent IM Intramuscular 06/14/2016 Administe red Prevnar 13 IM Intramuscular 08/02/2016 Administered Fluarix Quadrivalent IM Intramuscular 06/28/2017 Administe red Fluarix Quadrivalent IM Intramuscular 07/24/2018 Administying red Influenza High Dose IM Intramuscular 07/20/2019 Administer ed PPSV23 (Pnemovax) IM Intramuscular 04/22/2020 Administered Influenza High Dose IM Intramuscular 06/17/2020 Administer ed Covid Vaccine Unknown 12/29/2020 Administered Pfizer Fluarix Quadrivalent IM Intramuscular 08/18/2021 Administe red SARS-COV-2 Pfizer Unknown 01/19/2021 Administered Fluarix Quadrivalent IM Intramuscular 07/15/2022 Administying red Fluarix Quadrivalent IM Intramuscular 07/08/2023 Administying red Fluarix Quadrivalent - 150 IM Intramuscular 07/26/2024 Adm inistered Flu Vaccine Unknown 12/06/2024 Pending Social History Tobacco Use: Social History Observation Description Date Details (start date - stop date) Never Smoker NA - NA Tobacco Use/Smoking Question Answer Notes Patient is a nonsmoker Additional Findings: Tobacco Non-User Cu rrent non-smoker, currently using no form of tobacco Alcohol Screen Question Answer Notes Did you have a drink containing alcohol in the p ast year? 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 confirmed Problem 526298309 Diverticulosis (K57.90) Active confirmed Problem Intolerance to lactose (finding) (040843164) Lactose intolerance (E73.9) Active confirmed Vital Signs Blood pressure diastolic 66 mm Hg 02/04/2025 Height 75 in 02/04/2025 Blood pressure systolic 128 mm Hg 02/04/2025 Weight 177 lbs 02/04/2025 BMI 22.12 kg/m2 02/04/2025 Encounters Encounter Location Date Provider Diagnosis Fahad Garner MD [address] [place] [id number] 10/11/2024 Fahad Garner Low HDL (under 40) E78.6 ; Lymphocytosis D72.820 and Rising PSA level R97.20 Fahad Garner MD [address] [place] [id number] 12/06/2024 Fahad Garner Encounter for genera l adult medical examination with abnormal findings Z00.01 ; Encounter for immunization Z23 ; Lumbar disc disease M51.9 and Arthritis pain, hip M16.10 Fahad Garner MD [address] [place] [id number] 02/04/2025 Fahad Garner Somnolence R40.0 and Lumbar disc disease M51.9 Fahad Garner MD [address] [place] [id number] 04/16/2024 Fahad Garner Rising PSA level R97.20 and Diverticulosis K57.90 Fahad Garner MD [address] [place] [id number] 05/15/2024 Fahad Garner Lumbar disc disease M51.9 Fahad Garner MD [address] [place] [id number] 07/26/2024 Fahad Garner Encounter for administration of vaccine Z23 Fahad Garner MD [address] [place] [id number] 10/18/2024 Fahad Garner Lumbar disc disease M51.9 ; Elevated PSA R97.20 ; Low HDL (under 40) E78.6 ; Lymphocytosis D72.820 ; Colon cancer screening Z12.11 and Depression screening Z13.31 Fahad Garner MD [address] [place] [id number] 11/06/2024 Fahad Garner Lumbar disc disease M51.9 and Arthritis pain, hip M16.10 Fahad Garner MD [address] [place] [id number] 01/07/2025 Fahad Garner Lumbar disc disease M51.9 Assessments Encounter Date Diagnosis (ICD Code) Assessment Notes Treatment Notes Treatment Clinical Notes Section Notes 10/11/2024 Low HDL (under 40) (ICD-10 - E78.6) 10/11/2024 Lymphocytosis (ICD-10 - D72.820) 12/06/2024 Encounter for general adult medical examination with abnormal findings (ICD-10 - Z00.01) 02/04/2025 Somnolence (ICD-10 - R40.0) pending labs 02/04/2025 Lumbar disc disease (ICD-10 - M51.9) patient verbalized understanding of medication and directions for use 04/16/2024 Rising PSA level (ICD-10 - R97.20) need note from urology in nov this year/ request sent for records 04/16/2024 Diverticulosis (ICD-10 - K57.90) no diverticulitis/ was seen on mri 05/15/2024 Lumbar disc disease (ICD-10 - M51.9) referral to [facility] 07/26/2024 Encounter for administration of vaccine (ICD-10 - Z23) 10/18/2024 Lumbar disc disease (ICD-10 - M51.9) need mri from [facility]/ needs referral to dr hensley/ request for MRI report sent to [facility] 10/18/2024 Elevated PSA (ICD-10 - R97.20) followed by urology 11/06/2024 Lumbar disc disease (ICD-10 - M51.9) reviewed MRI report with patient, have explained that the pain in his lower leg is coming from his back. 11/06/2024 Arthritis pain, hip (ICD-10 - M16.10) have explained that the hip injection will make him wait until 3 months before surgery. 01/07/2025 Lumbar disc disease (ICD-10 - M51.9) has had his surgery. is doing much better. 80 to 90 percent of his leg pain is gone. still feeling unsure of stepping. had him walk and get up from sitting and has difinitley improved. will check on him in 3 weeks 10/11/2024 Rising PSA level (ICD-10 - R97.20) 12/06/2024 Encounter for immunization (ICD-10 - Z23) 12/06/2024 Lumbar disc disease (ICD-10 - M51.9) getting back surgery 10/18/2024 Low HDL (under 40) (ICD-10 - E78.6) stable, advised on diet 12/06/2024 Arthritis pain, hip (ICD-10 - M16.10) some may be part of his pain but not the pain going down the leg 10/18/2024 Lymphocytosis (ICD-10 - D72.820) stable, will continue to monitor 10/18/2024 Colon cancer screening (ICD-10 - Z12.11) guaiac negative 10/18/2024 Depression screening (ICD-10 - Z13.31) negative screen Plan Of Treatment Pending Test Test Name Order Date US LEG LT VENOUS DOPPLER 05/24/2023 Complete Blood Count Auto Diff Urine Culture 02/04/2025 Next Appt Details Provider Name:Fahad nation, 10/15/2025 07:30:00 AM, [address] [place] [address], [address], [phone], Provider Name:Fahad greyr, 10/22/2025 01:00:00 PM, [address] [place] [address], [address], [phone], Provider Name:Fahad Blake ier, 12/09/2025 01:45:00 PM, [address] [place] [address], [address], [phone], Insurance Providers Payer Name Payer Address Payer Phone Subscriber Number Group Number Insured Name Patient Relationship to Insured Coverage Start Date Coverage End Date [employer] [address] [place] [address] [id number] Kush Suarez Self - patient is the insured [facility] [address] [place] [phone] [id number] Kush Suarez Self - patient is the insured Medical (General) History Medical History History ICD Code colonoscopy 10/2011 due in 5 years. colonoscopy 10/2016 due in [address] Linder: Colonoscopy tubular adenoma 09/14/2021, pending biopsy, no furter testing if negative. Hx of lymphocytosis Surgical History Surgery Date(Month/Year) Rt Inguinal Hernai Repair w/Mesh 07/2016
--- OUTSIDE RECORDS SUMMARY | 2025-02-04 16:39 | XMS_ITS ---
Author Organization Fahad Garner MD Address [address] [place] [phone] Care Team Providers Care Data Processing Auditor Name Role Phone Fahad Garner Primary Care Provider [phone] Allergies No Known Allergies REASON FOR VISIT 4 WEEK Medications Medication SIG (Take, Route, Fr equency, Duration) Notes Start Date End Date Status Indomethacin 50 MG 1 capsule with food or milk Orally 3 timesn a day for 10 days 05/24/2023 Not-Taking Immunizations Vaccine Route Administration Date Status Comme nts Flu Vaccine Unknown 12/06/2024 Pending Social History [...] ast year? No Points 0 Interpretation Negative Vital Signs Blood pressure systolic 132 mm Hg 12/07/19 25 Blood pressure diastolic 60 mm Hg 025 Height 75 in 12/06/2024 Weight 181 lbs 12/06/2024 BMI 22.62 kg/m2 12/06/2024 Encounters Encounter Location Date Provider Diagnosis Fahad Garner MD [address] [place] [phone] 12/06/2024 Fahad Garner Encounter for genera l adult medical examination with abnormal findings Z00.01 ; Encounter for immunization Z23 ; Lumbar disc disease M51.9 and Arthritis pain, hip M16.10 Assessments Encounter Date Diagnosis (ICD Code) Assessment Notes Treatment Notes Treatment Clinical Notes Section Notes 12/06/2024 Encounter for general adult medical examination with abnormal findings (ICD-10 - Z00.01) 12/06/2024 Encounter for immunization (ICD-10 - Z23) 12/06/2024 Lumbar disc disease (ICD-10 - M51.9) getting back surgery 12/06/2024 Arthritis pain, hip (ICD-10 - M16.10) some may be part of his pain but not the pain going down the leg Plan Of Treatment Treatment Notes Assessment Notes Lumbar disc disease getting back surgery Arthritis pain, hip some may be part of his pain but not the pain going down the leg Next Appt Details Follow Up: 4 Weeks, Reason: Provider Name:Fahad nation, 10/15/2025 07:30:00 AM, [address] [place] [address], [address], [phone], Provider Name:Fahad nation, 10/22/2025 01:00:00 PM, [address] [place] [address], [address], [phone], Provider Name:Fahad nation, 12/09/2025 01:45:00 PM, [address] [place] [address], [address], [phone], Progress Notes * Kush STARK FDOB:[birth year] (79 yo M)Acc No.[id number]:12/06/2024 Progress Note Patient:?PODLOVITS, Edward F Provider:?Fahad Garner MD :1945???Age:79 Y???Sex:Male Gurjit e:12/06/2024 Address:[address] [place], [place] [phone] Subjective: * Chief Complaints: * ???1. 4 WEEK. * HPI: ???Depression Screening:?PHQ-9?Little interest or pleasure in doing things?Not at all,?Feeling down, depressed, or hopeless?Not at all,?Trouble falling or staying asleep, or sleeping too much?Not at all,?Feeling tired or having little energy?Not at all,?Poor appetite or overeating?Not at all,?Feeling bad about yourself or that you are a failure, or have let yourself or your family down?Not at all,?Trouble concentrating on things, such as reading the newspaper or watching television?Not at all,?Moving or speaking so slowly that other people could have noticed; or the opposite, being so fidgety or restless that you have been moving around a lot more than usual?Not at all,?Thoughts that you would be better off or of hurting yourself in some way?Not at all,?Total Score?0.?patient is a 79 yo male here for 4 week follow up visit saw dr hensley this morning. is going to have surgery/. ???Communication Needs:?Communication Needs?Does the patient have a hearing impairment?Yes,?If yes, what is the hearing impairment??Hard of hearing, Hearing Aids,?Does the patient have a vision impairment??Yes,?If yes, what is the vision impairment??Glasses,?Does the patient have a cognition impairment??No.?Fall Risk:?History?Have you had any falls with injury in the past year??No,?Have you had two or more falls in the past year??No.?SDOH Questions:?SDOH Questions?In the past year have you been worried about losing housing??No,?In the past year have you or any family members you live with been unable to get any of the following when it was really needed? Check all that apply:?None.?Annual Wellness Visit:?c/o of?Annual Wellness Visit.?Medical / Social History Reviewed?The following items were reviewed and updated during today's visit?Past Medical History, [place] of Care, Surgical/Hospitalization History, Current medications including OTC and supplements, Family History, Tobacco use, Alcohol use, Illicit drug use.?Home Safety?Throw rugs??No,?Grab bars??Yes,?Raised toilet seats??No,?Working smoke detectors??Yes,?Working carbon monoxide detectors??Yes.?Activities of Daily Living (ADLs)?Difficulty bathing or showering??No,?Difficulty dressing??No,?Difficulty using the toilet??No,?Difficulty getting in and out of bed??No,?Difficulty walking??No,?Receives help from another person with any of the above?No.?End-of-Life Planning?End of Life Planning?Not needed.?Answers for HPI/ROS submitted by the patient?Change in Weight?No,?Change in hearing?No.? HRA filled out by the patient, reviewed by Provider and scanned. * ROS:?General/Constitutional:?Denies?Chills.?Denies?Fatigue.?Denies?Fever.?Denies?Headache.?ENT:?Patient denies?decreased sense of smell, any loss of taste, sore throat.?Denies?Sore throat.?Respiratory:?Denies?Cough.?Denies?Shortness of breath at rest.?Denies?Shortness of breath with exertion.?Gastrointestinal:?Denies?Diarrhea.?Denies?Nausea.?Musculoskeletal:?Patient denies?muscle aches.?Peripheral Vascular:?Patient denies?red and blue toes.? * Medical History:?colonoscopy 10/2011 due in 5 years. colonoscopy 10/2016 due in [address] Linder: Colonoscopy tubular adenoma 09/14/2021, pending biopsy, no furter testing if negative. , Hx of lymphocytosis. * Family History:?Father: dece ased 86 yrs, stroke.?Mother: 70 yrs, diagnosed with Cancer.? 1 sister, Denies mental health/substance abuse family history, No pertinent family medical history, Denies mental health/substance abuse family history, Denies mental health/substance abuse family history, Denies mental health/substance abuse family history. * Social History:?Tobacco Use:?Tobacco Use/Smoking?Patient is a?nonsmoker,?Additional Findings: Tobacco Non-User?Current non-smoker, currently using no form of tobacco.?Drugs/Alcohol:?Alcohol Screen?Did you have a drink containing alcohol in the past year??No,?Points?0,?Interpretation?Negative.?Miscellaneous:?Caffeine: yes, frequency:. Community involvements: no. Exercise: no. Home smoke detector use: yes. Housing: owning. Living with: significant other. Occupation: weeks/months/years, retired. Travel outside of the [place]: yes, [place]. * Medications:?Not-Taking/PRN Indomethacin 50 MG Capsule 1 capsule with food or milk Orally 3 timesn a day , Medication List reviewed and reconciled with the patient * Allergies:?N.K.D.A. Objective: * Vitals:?Ht: 75, Wt: 181, BMI :22.62, BP:132/60, Wt-k.1. * Examination: ???AWV: ?Balance?.?Hearing?.?EKG? Not clinically necessary.?Written plan?Completed.? Assessment: * Assessment: 1.?Encounter for immunizatio n - Z23 (Primary)???2.?Encounter for general adult medical examination with abnormal findings - Z00.01???3.?Lumbar disc disease - M51.9???4.?Arthritis pain, hip - M16.10??? Plan: * Treatment: 2.?Arthritis pain, hip? Notes: some may be part of his pain but not the pain going down the leg?? * Immunizations:? Flu Vaccine : .5 cc on Left Deltoid (Pending) * Procedure Codes:?G0439 ANNUA L WELLNESS VST; PPS SUBSQT VST, Modifiers: 80263 Flu Vaccine, 95213 IMMUNIZATION ADMIN * Preventive Medicine:? ??Counseling:?Care goal follow-up plan:?Counseling for abnormal BMI provided?Yes,?Above Normal BMI Follow-up?Dietary management education, guidance, and counseling, Dietary needs education, Giving encouragement to exercise.?Exercise?.?Communication to patient:?Counseling for nutrition provided?Yes,?Counseling for physical activity provided?Yes.?Social:?diet:?Discussed the importance of eating a nutritious healthy food on a regular basis,?exercise:?Discussed the benefits of any exercise for overall health and well-being,?alcohol and drugs:?Discussed the dangers of excessive alcohol intake.? ??SCREENING:?Colonoscopy?Next screening is scheduled.?Mammogram?Annual Mammogram recommended pt will self schedule.? ??Immunizations:?Influenza?Have you had a flu shot since the most recent June 03??Yes.?Covid?patient vaccincated.? ??Screening/Special Tests:?Colonoscopy?.?Mammogram?.? * Follow Up:?4 Weeks * * The named appointment provid er may or may not be the originator of this progress note, and it is not deemed complete until electronically signed by the appointment provider. Sign off status: Pending * Provider:?Fahad Garner MD Date:?0 12/06/2024 Generated for Lillie patterson/Leonard/eTransmitting on:?02/04/2025 04:39 PM EDT History and Physical Notes * HPI (History of Present Illness) Category Sub-Category Detail Notes Category Not es Depression Screening PHQ-9 Little inte rest or pleasure in doing things: Not at all patient is a 79 yo male here for 4 week follow up visit saw dr hensley this morning. is going to have surgery/ Feeling down, depressed, or hopeless: No t at all Trouble falling or staying asleep, or sl eeping too much: Not at all Feeling tired or having little energy: N ot at all Poor appetite or overeating: Not at all Feeling bad about yourself o r that you are a failure, or have let yourself or your family down: Not at all Trouble concentrating on thi ngs, such as reading the newspaper or watching television: Not at all Moving or speaking so slowly that other people could have noticed; or the opposite, being so fidgety or restless that you have been moving around a lot more than usual: Not at all Thoughts that you would be b kayley off or of hurting yourself in some way: Not at all Total Score: 0 SDOH Questions SDOH Questions In the past year have you been worried about losing housing?: No In the past year have you or any family members you live with been unable to get any of the following when it was really needed? Check all that apply:: None Fall Risk History Have you had any falls with injury i n the past year?: No Have you had two or more falls in the st year?: No Communication Needs Communication Needs Does the patient have a hearing impairment: Yes ?If yes, what is the hearing impairment? : Hard of hearing, Hearing Aids Does the patient have a vision impairmen t?: Yes ?If yes, what is the vision impairment?: Glasses Does the patient have a cognition impair ment?: No Annual Wellness Visit of Annual Wellness Vis it HRA filled out by the patient, reviewed by Provider and scanned. Medical / Social History Reviewed The fo llowing items were reviewed and updated during today's visit: Past Medical History, [place] of Care, Surgical/Hospitalization History, Current medications including OTC and supplements, Family History, Tobacco use, Alcohol use, Illicit drug use Home Safety Throw rugs?: No Grab bars?: Yes Raised toilet seats?: No Working smoke detectors?: Yes Working carbon monoxide detectors?: Yes Activities of Daily Living (ADLs) Difficulty bat meera or showering?: No Difficulty dressing?: No Difficulty using the toilet?: No Difficulty getting in and out of bed?: N o Difficulty walking?: No Receives help from another person with a ny of the above: No End-of-Life Planning End of Life Planning: Not n eeded Answers for HPI/ROS submitted by the patient Britany brown in Weight: No Change in hearing: No Examination Category Sub-Category Detail Notes Category Not es AWV Balance Romberg: . Tandem walk: . Walk and Turn: . Rise from sit to stand: . Hearing Whisper test: . EKG Not clinically elsa richards Written plan Completed
--- OUTSIDE RECORDS SUMMARY | 2025-02-04 16:39 | XMS_ITS ---
Author Organization Fahad Garner MD Address [address] [place] [phone] Care Team Providers Care Sterile Proc Tech Name Role Phone Fahad Garner Primary Care Provider Allergies No Known Allergies REASON FOR VISIT 4 week Medications Medication SIG (Take, Route, Fr equency, Duration) Notes Start Date End Date Status Indomethacin 50 MG 1 capsule with food or milk Orally 3 timesn a day for 10 days 05/24/2023 Not-Taking Vital Signs Blood pressure systolic 132 mm Hg 01/08/20 25 Blood pressure diastolic 60 mm Hg 025 Height 75 in 01/07/2025 Weight 178 lbs 01/07/2025 BMI 22.25 kg/m2 01/07/2025 weight is down 3 pounds [facility] e 12-06-24 Encounters Encounter Location Date Provider Diagnosis Fahad Garner MD [address] [place] [address] [address] [place], [place] [phone] 01/07/2025 Fahad Garner Lumbar disc disease M51.9 Assessments Encounter Date Diagnosis (ICD Code) Assessment Notes Treatment Notes Treatment Clinical Notes Section Notes 01/07/2025 Lumbar disc disease (ICD-10 - M51.9) has had his surgery. is doing much better. 80 to 90 percent of his leg pain is gone. still feeling unsure of stepping. had him walk and get up from sitting and has difinitley improved. will check on him in 3 weeks Plan Of Treatment Treatment Notes Assessment Notes Lumbar disc disease has had his surgery. is doing much better. 80 to 90 percent of his leg pain is gone. still feeling unsure of stepping. had him walk and get up from sitting and has difinitley improved. will check on him in 3 weeks Next Appt Details Provider Name:Fahad nation, 10/15/2025 07:30:00 AM, [address] [place] [address], Suite [facility], [place], [place], [phone], Provider Name:Fahad nation, 10/22/2025 01:00:00 PM, [address] [place] [address], Suite [facility], [place], [place], [phone], Provider Name:Fahad nation, 12/09/2025 01:45:00 PM, [address] [place] [address], Suite [facility], [place], [place], [phone], Progress Notes * Kush STARK FDOB:[birth year] (79 yo M)Acc No.[id number]:01/07/2025 Progress Notes Patient:?Kush STARK F Provider:?Fahad Garner MD :1945???Age:79 Y???Sex:Male Gurjit e:01/07/2025 Address:[address] [place], [place] [phone] Subjective: * Chief Complaints: * ???4 week * HPI: ???Symptom(s):?patient is a 79 yo male here for 4 week follow up visit/ pain in lower leg is gone. pain in lower back gone/ hip pain in thigh is lot better. 40 percent better. not taking any pain meds. * ROS:?General/Constitutional:?Denies?Chills.?Denies?Fatigue.?Denies?Fever.?ENT:?Patient denies?decreased sense of smell, any loss of taste, sore throat.?Denies?Sore throat.?Respiratory:?Denies?Cough.?Denies?Shortness of breath at rest.?Denies?Shortness of breath with exertion.?Gastrointestinal:?Denies?Diarrhea.?Denies?Nausea.?Musculoskeletal:?Patient denies?muscle aches.?Peripheral Vascular:?Patient denies?red and blue toes.? * Medical History:? * Surgical History:? * Hospitalization/Major Diagno stic Procedure:? * Medications:?Not-Taking/PRNI ndomethacin 50 MG Capsule 1 capsule with food or milk Orally 3 timesn a day Medication List reviewed and reconciled with the patientNot-Taking/PRN Indomethacin 50 MG Capsule 1 capsule with food or milk Orally 3 timesn a day Medication List reviewed and reconciled with the patient * Allergies:?N.K.D.A.yes[Aller gies Verified] Objective: * Vitals:?Ht: 75, Wt: 178, BMI :22.25, BP:132/60, Wt-k.74. weight is down 3 pounds since 12-06-24. * Examination: ???General Examination: ?GENERAL APPEARANCE:?alert, well hydrated, in no distress.?HEAD:?normocephalic.?SKIN:?good turgor.?HEART:?regular rate and rhythm, no murmurs, rubs, gallops.?LUNGS:?no wheezes, rales, rhonchi, good air movement, clear to auscultation bilaterally.? Assessment: * Assessment: 1.?Lumbar disc disease - M51 .9 (Primary)??? Plan: * Treatment: * Procedure Codes:? * * Sign off status: Completed true * Provider:?Fahad Garner MD Date:?0 01/07/2025 Generated for Lillie patterson/Leonard/eTransmitting on:?02/04/2025 04:39 PM EDT History and Physical Notes * HPI (History of Present Illness) Category Sub-Category Detail Notes Category Not es Symptom(s) patient is a 79 yo male here for 4 week follow up visit/ pain in lower leg is gone. pain in lower back gone/ hip pain in thigh is lot better. 40 percent better. not taking any pain meds Examination Category Sub-Category Detail Notes Category Not es General Examination GENERAL APPEARANCE: alert, w ell hydrated, in no distress HEAD: normocephalic HEART: regular rate and rhy thm, no murmurs, rubs, gallops LUNGS: no wheezes, rales, r honchi, good air movement, clear to auscultation bilaterally SKIN: good turgor
--- OUTSIDE RECORDS SUMMARY | 2025-02-04 16:39 | XMS_ITS ---
Author Organization Fahad Garner MD Address [address] [place] [phone] Care Team Providers Care Chair Caner Name Role Phone Fahad Garner Primary Care Provider Allergies No Known Allergies Results Component Value Reference Range Notes Complete Blood Count Auto Di ff (Not yet reviewed by provider) Interpretation: Performing Lab:[facility], [address] [place] [phone] Notes/Report: White Blood Count 8.0 4.8-10.8 X10*3/uL [...] 0.00-0.03 X10*3/uL Lymphocytes Absolute Auto 2.5 1.2-4.9 X10*3/u L Monocytes Absolute Auto 1.0 0.1-1.2 X10*3/uL Eosinophils Absolute Auto 0.1 0.0-0.4 X10*3/u L Basophils Absolute Auto 0.1 0.0-0.2 X10*3/uL NRBC Abs Auto 0.000 0.0-0.012 X10*3/uL Urinalysis and Microscopic Reviewed date:02/04/2025 04:10:40 PM Interpretation: Performing Lab:[facility], [address] [place] [phone] Notes/Report: Color Urine Yellow Appearance Urine Clear PH 5.5 5.0-9.0 Glucose Urine UA Negative Negative mg/dL Urine Blood Negative Negative Specific [place] - Urine 1.020 1.005-1.025 Urine Protein Negative Neg-Trace mg/dL Urine Ketones Negative Negative mg/dL Nitrite Urine Negative Negative Leukocyte Esterase Urine Negative Negative RBC Urine 0-2 0-2 /HPF WBC Urine 0-5 0-5 /HPF Squamous Epithelial Cell Urine 0-2 0-2 /HPF Bacteria Urine None Seen None Seen Hyaline Casts Urine 0-2 0-2 /LPF Comprehensive Priddy. Panel Fa st Reviewed date:02/04/2025 04:27:38 PM Interpretation: Performing Lab:[facility], [address] [place] [phone] Notes/Report: Sodium 136 135-145 mmol/L Potassium 4.4 [...] T4 Reviewed date:02/04/2025 04:27:20 PM Interpretation: Performing Lab:[facility], [address] [place] [phone] Notes/Report: TSH reflex Free T4 2.01 0.32-4.0 uIU/mL REASON FOR VISIT follow up after seeing surgeon, Accompanied by Medications Medication SIG (Take, Route, Fr equency, Duration) Notes Start Date End Date Status predniSONE 20 MG 1 tablet with food o r milk Orally Once a day for 10 days 02/04/2025 Ac tive Indomethacin 50 MG 1 capsule with food or milk Orally 3 timesn a day for 10 days 05/24/2023 Not-Taking Problems Problem Type SNOMED Code ICD Code Onset Dates Problem Status W/U Status Risk Notes Problem Somnolence (R40.0) Active confirmed Vital Signs Blood pressure systolic 128 mm Hg 02/05/20 25 Blood pressure diastolic 66 mm Hg 025 Height 75 in 02/04/2025 Weight 177 lbs 02/04/2025 BMI 22.12 kg/m2 02/04/2025 Encounters Encounter Location Date Provider Diagnosis Fahad Garner MD [address] [place], [place] [phone] 02/04/2025 Fahad Garner Somnolence R40.0 and Lumbar disc disease M51.9 Assessments Encounter Date Diagnosis (ICD Code) Assessment Notes Treatment Notes Treatment Clinical Notes Section Notes 02/04/2025 Somnolence (ICD-10 - R40.0) pending labs 02/04/2025 Lumbar disc disease (ICD-10 - M51.9) patient verbalized understanding of medication and directions for use Plan Of Treatment Medication Medication Name Sig Start Date Stop Date Notes predniSONE 20 MG 1 tablet with food o r milk Orally Once a day for 10 days 02/04/2025 Treatment Notes Assessment Notes Somnolence pending labs Lumbar disc disease patient verbalized u nderstanding of medication and directions for use Pending Test Test Name Order Date Complete Blood Count Auto Diff Urine Culture 02/04/2025 Next Appt Details Provider Name:Fahad nation, 10/15/2025 07:30:00 AM, [address] [place] [address], [address], [phone], Provider Name:Fahad nation, 10/22/2025 01:00:00 PM, [address] [place] [address], Suite [facility], [place], [place], [phone], Provider Name:Fahad nation, 12/09/2025 01:45:00 PM, [address] [place] [address], Suite [facility], [place], [place], [phone], Progress Notes * Kush STARK FDOB:[birth year] (79 yo M)Acc No.[id number]:02/04/2025 Progress Notes Patient:?Kush STARK F Provider:?Fahad Garner MD :1945???Age:79 Y???Sex:Male Gurjit e:02/04/2025 Address:[address] [place], [place] [phone] Subjective: * Chief Complaints: * ???1. Follow up after seeing surgeon. 2. Accompanied by . * HPI: ???Symptom(s):?patient is a 79 yo male here for follow up of recent visit with surgeon/ leg is still weak pain in lower leg is better. saw the pa 01/29.? going to start physical therapy. surgery was?12/29/ is falling asleep al the time. * ROS:?General/Constitutional:?Denies?Chills.?Denies?Fatigue.?Denies?Fever.?Denies?Headache.?ENT:?Denies?Sinus pain.?Respiratory:?Denies?Cough.?Denies?Shortness of breath at rest.?Denies?Shortness of breath with exertion.?Gastrointestinal:?Denies?Diarrhea.?Denies?Nausea.? * Medical History:?colonoscopy 10/2011 due in 5 years. colonoscopy 10/2016 due [place] [address] Linder: Colonoscopy tubular adenoma 09/14/2021, pending biopsy, no furter testing if negative. , Hx of lymphocytosis. * Medications:?Not-Taking/PRN Indomethacin 50 MG Capsule 1 capsule with food or milk Orally 3 timesn a day , Medication List reviewed and reconciled with the patient * Allergies:?N.K.D.A. Objective: * Vitals:?Ht: 75, Wt: 177, BMI :22.12, BP:128/66, Wt-k.29. * Examination: ???General Examination: ?GENERAL APPEARANCE:?alert, well hydrated, in no distress, abnormal not able to get out of chair without a great deal of assistance..?SKIN:?good turgor.?HEART:?no murmurs, rubs, gallops, regular rate and rhythm.?LUNGS:?no wheezes, rales, rhonchi, good air movement, clear to auscultation bilaterally.? Assessment: * Assessment: 1.?Somnolence - R40.0 (Prima ry)???2.?Lumbar disc disease - M51.9??? Plan: * Treatment: 2.?Lumbar disc disease? Start predniSONE Tablet, 20 MG, 1 tablet with food or milk, Orally, Once a day, 10 days, 10 Tablet.?? Notes: patient verbalized understanding of medication and directions for use?? * Procedure Codes:?27964 VENIP UNCT, ROUTINE* * * The named appointment provid er may or may not be the originator of this progress note, and it is not deemed complete until electronically signed by the appointment provider. Sign off status: Pending * Provider:?Fahad Garner MD Date:?0 02/04/2025 Generated for Lillie patterson/Leonard/Felaransmitting on:?02/04/2025 04:39 PM EDT History and Physical Notes * HPI (History of Present Illness) Category Sub-Category Detail Notes Category Not es Symptom(s) patient is a 79 yo male here for follow up of recent visit with surgeon/ leg is still weak pain in lower leg is better. saw the pa 01/29. going to start physical therapy. surgery was 12/29/ is falling asleep al the time. Examination Category Sub-Category Detail Notes Category Not es General Examination GENERAL APPEARANCE: alert, w ell hydrated, in no distress, abnormal not able to get out of chair without a great deal of assistance. HEART: no murmurs, rubs, ga llops, regular rate and rhythm LUNGS: no wheezes, rales, r honchi, good air movement, clear to auscultation bilaterally SKIN: good turgor
--- OUTSIDE RECORDS SUMMARY | 2025-02-04 16:40 | XMS_ITS | Patient Health Record ---
Author Organization [facility] Address [address] [place] [phone] Care Team Providers Care Natural Science Manager Name Role Phone Fahad Garner MD Primary Care Provider Buck Hatch Unavailable [phone] Allergies No Known Allergies Reason For Referral No Information Medications Medication SIG (Take, Route, Frequency, Duration) Notes Start Date End Date Status CoQ-10 Active Multivitamin Active Immunizations Vaccine Route Administration Date Status Comme nts Influenza Unknown 08/03/2021 Administered Social History Tobacco Use: Social History Observation Description Date Details (start date - stop date) Never Smoker NA - NA Tobacco Use/Smoking Question Answer Notes Patient is a nonsmoker Alcohol Screen Question Answer Notes Did you have a drink contain ing alcohol in the past year? Yes How often did you have a dri nk containing alcohol in the past year? Never (0 point) How many drinks did you have on a typical day when you were drinking in the past year? 1 or 2 drinks (0 point) How often did you have 6 or more drinks on one occasion in the past year? Never (0 point) Points 0 Interpretation Negative Section Notes: Nonsmoker, very occasional g lass of wine Problems Problem Type SNOMED Code ICD Code Onset Dates Problem Status W/U Status Risk Notes Problem 495677475 Encounter for screening for malignant neoplasm of colon (Z12.11) Active confirmed Problem 286098441 History of adenomatous polyp of colon (Z86.010) Active confirmed Problem 500648553 Lactose intolerance (E73.9) Active confirmed Problem Diverticulosis of colon (646600632) Diverticulosis of colon (K57.30) Active confirmed Problem 891138256 Abnormal MRI of the abdomen (R93.5) Active confirmed Plan Of Treatment Pending Test Test Name Order Date Pathology 09/14/2021 Future Test Test Name Order Date COLONOSCOPY 08/25/2021 Insurance Providers Payer Name Payer Address Payer Phone Subscriber Number Group Number Insured Name Patient Relationship to Insured Coverage Start Date Coverage End Date MEDICARE OF [place] [address] [place] [address] [id number] PODLOVIT CINTIA Pruitt Self - patient is the insured [facility] [employer] [address] [place] [address] [phone] [id number] PODLOVIT CINTIA Pruitt Self - patient is the insured Medical (General) History Medical History History ICD Code Denies [place],DM,CVA,Lung disease,renal dise ase Colonoscopy with me in 2 with removal of small tubular adenomas; colonoscopies prior to that with me had also revealed tubular adenomas that were removed; he reports a negative colonoscopy in [place] in approx 2015 or 2016 Elevated PSA levels being fo llowed by his urologist--he describes a negative prostate biopsy in early 2020. He is scheduled for a bladder ultrasound in September of 2021 and a cystoscopy in October of 2021 for evaluation of a questionable bladder lesion on a MRI. Surgical History Surgery Date(Month/Year) Cataracts bilateral 2017 Inguinal hernia repair 2016 Appendectomy
[2025-02-05 08:50] LABS: Iron 21 mcg/dL (45-160); Percent Iron Saturation 10 % (15-50); Total Iron Binding Capacity 210 mcg/dL (228-428); Unsaturated Iron Binding 189 ug/dL
[2025-02-05 09:23] LABS: Folate 4.9 ng/mL (> or = 4.0); Vitamin B12 196 pg/mL (200-900)
== END 2025-02-04 15:02 | disposition home or self-care (01) ==
LOC: HO.LNP 15:01
PROVIDERS: Visit Provider Internal Medicine
DX: D64.9 Anemia, unspecified (principal); R30.0 Dysuria
CPT/HCPCS: 80053; 81001; 82607; 82746; 83540; 84443; 85025; 87086

== ENCOUNTER 2025-03-04 12:38 | Outpatient (REF) | payer MEDICARE, OTHER, SELFPAY ==
--- NOTE | ~2025-03-04 | XR_ITS ---
EXAMINATION: XR HIP 2 OR MORE VIEWS LEFT HISTORY: HIP ARTHRITIS COMPARISON: There are no prior studies available for comparison. FINDINGS: A single AP view of the pelvis and two views of the left hip are submitted. Osseous mineralization is normal. There is no fracture or dislocation. There is severe osteoarthritis with joint space narrowing, subchondral sclerosis, subchondral cyst formation, and remodeling of the femoral head. Milder changes are noted involving the right hip. There is degenerative disc disease of the spine. The soft tissues are unremarkable. XR/XR hip LT min 2V IMPRESSION: Severe osteoarthritis of the left hip as described. Electronically signed by: Buck Perales MD 03/04/2025 03:43 PM EDT
--- OUTSIDE RECORDS SUMMARY | 2025-03-04 13:36 | XMS_ITS | Patient Health Record ---
Author Organization Fahad Garner MD Address [address] [place] [phone] Care Team Providers Care Justice Professor Name Role Phone Fahad Garner Primary Care Provider Allergies No Known Allergies Results Component Value Reference Range Notes Complete Blood Count Auto Di ff Reviewed date:10/11/2024 06:09:17 PM Interpretation: Performing Lab:[facility], [address] [place] [phone] Notes/Report: White Blood Count 7.0 4.8-10.8 X10*3/uL [...] NRBC Abs Auto 0.000 0.0-0.012 X10*3/uL Comprehensive [place]. Panel Fa st Reviewed date:10/11/2024 06:03:52 PM Interpretation: Performing Lab:[facility], [address] [place] [phone] Notes/Report: Sodium 142 135-145 mmol/L Potassium 3.9 [...] Panel Reviewed date:10/11/2024 06:06:52 PM Interpretation: Performing Lab:[facility], [address] [place] [phone] Notes/Report: Triglycerides 60 <150 mg/dL Desirable Triglyceride: [...] Reviewed date:10/18/2024 12:35:50 PM Interpretation:[place] 10/18/24 Performing Lab:[address] [phone] Notes/Report: PSA,Total (Free>4and<10) 9.16 0.00-4.00 ng/mL PSA methodology: Ortega Alinity i Chemiluminescent Microparticle Immunoassay (CMIA) UA ClnCatch+Micro w/rflx Cul t Reviewed date:10/11/2024 06:06:45 PM Interpretation: Performing Lab:[facility], [address] [place] [phone] Notes/Report: Urine, Clean Catch Color Urine Yellow Appearance Urine Clear PH 5.0 5.0-9.0 Glucose Urine UA Negative Negative mg/dL Urine Blood Negative Negative Specific [place] - Urine 1.020 1.005-1.025 Urine Protein Negative Neg-Trace mg/dL Urine Ketones Negative Negative mg/dL Nitrite Urine Negative Negative Leukocyte Esterase Urine Negative Negative RBC Urine 0-2 0-2 /HPF WBC Urine 0-5 0-5 /HPF Squamous Epithelial Cell Urine 0-2 0-2 /HPF Bacteria Urine Trace None Seen Hyaline Casts Urine 3-5 0-2 /LPF Occult Blood, Stool, Guaiac Reviewed date:10/18/2024 11:05:16 AM Interpretation:Negative Performing Lab: Notes/Report: Negative Occult Blood, Stool, Guaiac Neg Complete Blood Count Auto Di ff Reviewed date:02/05/2025 08:31:01 AM Interpretation: Performing Lab:[facility], [address] [place] [phone] Notes/Report: White Blood Count 8.0 4.8-10.8 X10*3/uL [...] Microscopic Reviewed date:02/04/2025 04:10:40 PM Interpretation: Performing Lab:[facility], [address] [place] [phone] Notes/Report: Color Urine Yellow Appearance Urine Clear PH 5.5 5.0-9.0 Glucose Urine UA Negative Negative mg/dL Urine Blood Negative Negative Specific [place] - Urine 1.020 1.005-1.025 Urine Protein Negative Neg-Trace mg/dL Urine Ketones Negative Negative mg/dL Nitrite Urine Negative Negative Leukocyte Esterase Urine Negative Negative RBC Urine 0-2 0-2 /HPF WBC Urine 0-5 0-5 /HPF Squamous Epithelial Cell Urine 0-2 0-2 /HPF Bacteria Urine None Seen None Seen Hyaline Casts Urine 0-2 0-2 /LPF Comprehensive [place]. Panel Fa Reviewed date:02/05/2025 10:14:35 AM Interpretation: Performing Lab:[facility], [address] [place] [phone] Notes/Report: Sodium 136 135-145 mmol/L Potassium 4.4 [...] 39-117 U/L TSH reflex Free T4 Reviewed date:02/05/2025 10:13:44 AM Interpretation: Performing Lab:[facility], [address] [place] [phone] Notes/Report: TSH reflex Free T4 2.01 0.32-4.0 uIU/mL Urine Culture Reviewed date:02/05/2025 12:08:57 PM Interpretation: Performing Lab:[facility], [address] [place] [phone] Notes/Report: Urine Culture No growth. PSA Free and Total Reviewed date:10/18/2024 12:35:30 PM Interpretation:[place] 10/18/24 Performing Lab:[facility], [address] [place] [phone] Notes/Report: Prostate Specific Ag Total 10.3 < OR = 4.0 ng/ mL Percent Free Prostate Spec Ag NOT CALCULATED >25 % (calc) PSA(ng/mL) Free PSA(%) Estimated(x) Probability of Cancer(as%) 0-2.5 (*) Approx. 1 2.6-4.0(1) 0-27(2) 24(3) 4.1-10(4) 0-10 56 11-15 28 16-20 20 21-25 16 >or =26 8 >10(+) N/A >50 References:(1)Farhatona et al.:Urology 60: 469-474 (2001) (2)Farhatona et al.:J.Urol 168: 922-925 (2001) Free PSA(%) Sensitivity(%) Specificity(%) < or = 25 85 19 < or = 30 93 9 (3)Catalona et al.:BUD 277: 0219-8421 (1996) (4)Catalona et al.:BUD 279: 8761-8113 (1997) (x)These estimates vary with age, ethnicity, [...] mind. PSA was performed using the Doyle Bennett Immunoassay method. Values obtained from different assay methods cannot be used interchangeably. PSA levels, regardless of value, should not be interpreted as absolute evidence of the presence or absence of disease. THIS TEST WAS PERFORMED AT: [facility] [address] [place] [phone] PRAVEEN LAWSON MD Free Prostate Spec Ag 1.4 IRON PROFILE Reviewed date:02/05/2025 10:14:03 AM Interpretation: Performing Lab:[address] [phone] Notes/Report: Iron 21 45-160 mcg/dL Total Iron Binding Capacity 210 228-428 mcg/dL Percent Iron Saturation 10 15-50 % Unsaturated Iron Binding 189 Vitamin B12 and Folate Reviewed date:02/05/2025 10:14:16 AM Interpretation: Performing Lab:[address] [phone] Notes/Report: Vitamin B12 196 200-900 pg/mL NORMAL 200-900 PG/ML INDETERMINATE 160-199 PG/ML DEFICIENT < 160 PG/ML Folate 4.9 > or = 4.0 ng/mL Reference Values: > or = 4.0 ng/mL < 4.0 ng/mL suggests folate deficiency Methotrexate, aminopterin and folinic acid (leucovorin) are chemotherapeutic agents whose molecular structures are similar to folate; therefore, the Respiratory Care Practitioner folate assay cannot be used for patients using these drugs. Kevin Dailey Reviewed date:02/04/2025 04:10:07 PM Interpretation: Performing Lab:[address] [phone] Notes/Report: Kevin Dailey See Note Specimen held untested for 24 hours; Call to request Chemistry testing. Reason For Referral Reason lumber disc disease Diagnosis 1 Lumbar disc disease (M51.9) Referral Organization Fahad Garner MD Referring Provider First Name Fahad Referring Provider Last Name Patsy Referring Provider Speciality Internal M edicine Referred Provider [facility] Referred Provider Specialty Physical Med icine General Notes Amy Rojas 0 05/17/2024 03:04:51 PM EDT > info faxed Referral Priority Routine Referral Appointment Date 05/21/2024 Reason lumbar disc disease Diagnosis 1 Lumbar disc disease (M51.9) Referral Organization Fahad Garner MD Referring Provider First Name Fahad Referring Provider Last Name Patsy Referring Provider Speciality Internal M edicine Referred Provider Danny Hensley Referred Provider Specialty Neurological Surgery General Notes Amy Rojas 0 11/02/2024 01:21:59 PM > f [phone] Annette 11/02/2024 01:37:55 PM >info faxed, Amy Rojas 11/05/2024 07:26:39 AM > info mailed to patient Referral Priority Routine Referral Appointment Date 12/06/2024 Reason hip arthritis Diagnosis 1 Hip arthritis (M19.9 0) Referral Organization Fahad Garner MD Referring Provider First Name Fahad Referring Provider Last Name Patsy Referring Provider Speciality Internal M edicine Referred Provider MackFrancis Referred Provider Specialty Orthopedic S urgery Referral Priority Routine Medications Medication SIG (Take, Route, Fr equency, Duration) Notes Start Date End Date Status predniSONE 20 MG 1 tablet with food o r milk Orally Once a day for 10 days 02/04/2025 Active Immunizations Vaccine Route Administration Date Status [...] Administe red Fluarix Quadrivalent IM Intramuscular 07/24/2018 Administe red Influenza High Dose IM Intramuscular 07/20/2019 Administer ed PPSV23 (Pnemovax) IM Intramuscular 04/22/2020 Administered Influenza High Dose IM Intramuscular 06/17/2020 Administer ed Covid Vaccine Unknown 12/29/2020 Administered Pfizer Fluarix Quadrivalent IM Intramuscular 08/18/2021 Administe red SARS-COV-2 Pfizer Unknown 01/19/2021 Administered Fluarix Quadrivalent IM Intramuscular 07/15/2022 Administe red Fluarix Quadrivalent IM Intramuscular 07/08/2023 Administe red Fluarix Quadrivalent - 150 IM Intramuscular [...] Problem Status W/U Status Risk Notes Problem 76004775 Lymphocytosis (D72.820) Active confirmed Problem Arthritis of hip (11477611) Hip arthritis (M19.90) Active confirmed Problem Somnolence (88941623) Somnolence (R40.0) Active confirmed Problem 825756365 Lumbar disc dise ase (M51.9) Active confirmed Problem 007563917 Low HDL (under 4 0) (E78.6) Active confirmed Problem 264115596 History of thrombophlebitis (Z86.72) Active confirmed Problem 258282402 Rising PSA level (R97.20) Active confirmed Problem 5838626775061 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) Active confirmed Problem 208652136 Diverticulosis (K57.90) Active confirmed Problem Lactose intolera nce (E73.9) Active confirmed Vital Signs Blood pressure diastolic 70 mm Hg 03/04/2025 Height 75 in 03/04/2025 Blood pressure systolic 118 mm Hg 03/04/2025 Weight 180 lbs 03/04/2025 BMI 22.5 kg/m2 03/04/2025 Encounters Encounter Location Date Provider Diagnosis Fahad Garner MD [address] [place] [address] [address] [place] [id number] 10/11/2024 Fahad Garner Low HDL (under 40) E78.6 ; Lymphocytosis D72.820 and Rising PSA level R97.20 Fahad Garner MD [address] [place] [address] [address] [place] [id number] 12/06/2024 Fahad Garner Encounter for genera l adult medical examination with abnormal findings Z00.01 ; Encounter for immunization Z23 ; Lumbar disc disease M51.9 and Arthritis pain, hip M16.10 Fahad Garner MD [address] [place] [id number] 03/04/2025 Fahad Darinardier Hip arthritis M19.90 and B12 deficiency E53.8 Fahad Garner MD [address] [place] [id number] 04/16/2024 Fahad Haileyer Rising PSA level R97.20 and Diverticulosis K57.90 Fahad Garner MD [address] [place] [id number] 05/15/2024 Fahad Darinardier Lumbar disc disease M51.9 Fahad Garner MD [address] [place] [id number] 07/26/2024 Fahad Garner Encounter for administration of vaccine Z23 Fahad Garner MD [address] [place] [id number] 10/18/2024 Fahad Darinardier Lumbar disc disease M51.9 ; Elevated PSA R97.20 ; Low HDL (under 40) E78.6 ; Lymphocytosis D72.820 ; Colon cancer screening Z12.11 and Depression screening Z13.31 aFhad Garner MD [address] [place] [id number] 11/06/2024 Fahad Bombardier Lumbar disc disease M51.9 and Arthritis pain, hip M16.10 Fahad Garner MD [address] [place] [id number] 01/07/2025 Fahad Bombardier Lumbar disc disease M51.9 Fahad Garner MD [address] [phone] 02/04/2025 Fahad Darinardier Somnolence R40.0 and Lumbar disc disease M51.9 Assessments Encounter Date Diagnosis (ICD Code) Assessment Notes Treatment Notes Treatment Clinical Notes Section Notes 10/11/2024 Low HDL (under 40) (ICD-10 - E78.6) 10/11/2024 Lymphocytosis (ICD-10 - D72.820) 12/06/2024 Encounter for general adult medical examination with abnormal findings (ICD-10 - Z00.01) 03/04/2025 Hip arthritis (ICD-10 - M19.90) referral to dr lizarraga 03/04/2025 B12 deficiency (ICD-10 - E53.8) to start taking b12 04/16/2024 Rising PSA level (ICD-10 - R97.20) need note from urology in nov this year/ request sent for records 04/16/2024 Diverticulosis (ICD-10 - K57.90) no diverticulitis/ was seen on mri 05/15/2024 Lumbar disc disease (ICD-10 - M51.9) referral to [facility] 07/26/2024 Encounter for administration of vaccine (ICD-10 - Z23) 10/18/2024 Lumbar disc disease (ICD-10 - M51.9) need mri from [facility]/ needs referral to dr hensley/ request for MRI report sent to [facility] 10/18/2024 Elevated PSA (ICD-10 - R97.20) followed [...] will check on him in 3 weeks 02/04/2025 Somnolence (ICD-10 - R40.0) pending labs 02/04/2025 Lumbar disc disease (ICD-10 - M51.9) patient verbalized understanding of medication and directions for use 10/11/2024 Rising PSA level (ICD-10 - R97.20) [...] Date US LEG LT VENOUS DOPPLER 05/24/2023 XR HIP LEFT 4 OR MORE VIEWS 03/04/2025 Next Appt Details Provider Name:Fahadjcarlos Blake ier, 03/18/2025 11:30:00 AM, [address] [place] [address], [address], [phone], Provider Name:Fahad Blake ier, 10/15/2025 07:30:00 AM, [address] [place] [address], [address], [phone], Provider Name:Fahad Blake ier, 10/22/2025 01:00:00 PM, [address] [place] [address], [address], [phone], Provider Name:Fahadjcarlos Blake ier, 12/09/2025 01:45:00 PM, [address] [place] [address], [address], [phone], Insurance Providers Payer Name Payer Address Payer Phone Subscriber Number Group Number Insured Name Patient Relationship to Insured Coverage Start Date Coverage End Date [employer] [address] [place] [address] [id number] Kush Suarez Self - patient is the insured [facility] [address] [place] [phone] [id number] Kush Suarez Self - patient is the insured Medical (General) History Medical History History ICD Code colonoscopy 10/2011 due in 5 years. colonoscopy 10/2016 due in [address] Linder: Colonoscopy tubular adenoma 09/14/2021, pending biopsy, no furter testing if negative. Hx of lymphocytosis Surgical History Surgery Date(Month/Year) Rt Inguinal Hernai Repair w/Mesh 07/2016
== END 2025-03-04 12:39 | disposition home or self-care (01) ==
LOC: HO.XRAY 12:38
PROVIDERS: PCP Internal Medicine; Visit Provider Internal Medicine
DX: M16.12 Unilateral primary osteoarthritis, left hip (principal)
CPT/HCPCS: 73502

== ENCOUNTER → 2025-03-04 12:53 | Outpatient (BNV) | payer MEDICARE, OTHER, SELFPAY | PROVIDERS: PCP Internal Medicine; Visit Provider Radiology Diagnostic Radiology | DX: M25.552 Pain in left hip (principal) | CPT/HCPCS: 73502 ==